=== PATIENT | male | born 1945 | race Caucasian/White ===

== ENCOUNTER 2023-12-05 08:04 | Inpatient (IN) | payer OTHER ==
[~2023-12-05] VITALS: Ht 172.7 cm; Wt 94.5 kg
[~2023-12-05 08:04] MED LIST: AMLODIPINE BESY10 MG PO; ASCRIPTIN325 MG PO; AUGMENTIN 875 M1 TA1 PO; COUMADIN5 M2 PO; CRESTOR10 MG PO; FLAGYL250 MG PO; PRINIVIL20 MG
[2023-12-05 08:28] VITALS: BP 123/56
[2023-12-05] MEDS ORDERED: SODIUM CHLORIDE 0.9% 1,000 ML IV ONE (08:50)
[2023-12-05 09:16] LABS: BASO # 0.1 10*3/uL (0.0-0.1); BASO % 0.4 % (0.0-1.0); HEMATOCRIT 44.5 % (42.0-52.0); LYMPH # 0.7 10*3/uL (1.3-4.4); LYMPH % 5.2 % (27.0-41.0); MEAN CELL VOLUME 98.2 fl (80.0-94.0); MEAN CORPUSCULAR HGB 33.6 pg (27.0-31.0); MEAN CORPUSCULAR HGB CONC 34.2 g/dl (33.0-37.0); MEAN PLATELET VOLUME 10.4 fl (9.6-12.3); MONO # 1.3 10*3/uL (0.1-1.0); NEUT # 12.2 10*3/uL (2.3-7.9); NEUT % 84.7 % (47.0-73.0); PLATELET COUNT AUTOMATED 153 10*3/uL (130-400); RED BLOOD COUNT 4.53 10*6/uL (4.50-5.90); RED CELL DISTRI WIDTH 13.2 % (0-14.5); WHITE BLOOD COUNT 14.4 10*3/uL (4.8-10.8)
[2023-12-05] MEDS ORDERED: SODIUM CHLORIDE 0.9% 1,000 ML IV SCH (09:25)
[2023-12-05 09:30] LABS: ACT PARTIAL THROMBO TIME 32.4 SECONDS (20.0-32.1)
[2023-12-05 09:38] LABS: ALKALINE PHOSPHATASE 71 U/L (46-116); BUN 16 mg/dl (9-23); CHLORIDE 104 mmol/L (98-107); LIPASE 25 U/L (12-53); SGPT/ALT 16 U/L (5-49); TOTAL PROTEIN 7.2 gm/dL (6.0-8.0)
[2023-12-05 09:41] LABS: POTASSIUM 3.5 mmol/L (3.4-5.1)
[2023-12-05] MEDS ORDERED: ASPIRIN 325 MG TAB PO ONE (09:50)
[2023-12-05 11:35] VITALS: BP 124/63
[2023-12-05] MEDS ORDERED: AZITHROMYCIN 250 ML IV ONE (12:05)
[2023-12-05] MEDS ORDERED: Ceftriaxone Sodium 1 GM/10 ML SYR IV ONE (12:05)
[2023-12-05] MEDS ORDERED: methylPREDNISolone sod succ 125 MG VIAL IV ONE (12:05)
[2023-12-05] MEDS ORDERED: MAGNESIUM SULFATE 100 ML IV ONE (12:15)
[2023-12-05] MEDS ORDERED: Ondansetron Hydrochloride 4 MG/2 ML VIAL IV PRN (12:50)
[2023-12-05] MEDS ORDERED: ACETAMINOPHEN 325 MG TAB PO PRN ×2 (12:50→12:55)
[2023-12-05] MEDS ORDERED: BISACODYL 5 MG TAB PO PRN (12:50)
[2023-12-05] MEDS ORDERED: BISACODYL 10 MG SUPP R PRN (12:50)
[2023-12-05] MEDS ORDERED: ACETAMINOPHEN 650 MG SUPP R PRN (12:50)
[2023-12-05] MEDS ORDERED: Acetaminophen/Hydrocodone 5 MG/325 MG TABLET PO PRN (12:50)
[2023-12-05] MEDS ORDERED: Magnesium Hydroxide 30 ML UDC PO PRN (12:50)
[2023-12-05] MEDS ORDERED: LIPITOR20 MG PO (13:24)
[2023-12-05] MEDS ORDERED: ASPIRIN ADULT L81 M1 PO (13:25)
[2023-12-05] MEDS ORDERED: Albuterol Sulf/Ipratropium 3 ML VIAL NEB PRN (14:10)
[2023-12-05 15:26] VITALS: BP 114/53
[2023-12-05 18:39] VITALS: BP 122/55
[2023-12-05 21:09] VITALS: BP 102/37
[2023-12-05] MEDS ORDERED: methylPREDNISolone sod succ 40 MG VIAL IV SCH (22:00)
[2023-12-06 06:22] VITALS: BP 117/45
[2023-12-06 07:01] LABS: HEMATOCRIT 44.8 % (42.0-52.0); MEAN CELL VOLUME 100.9 fl (80.0-94.0); MEAN CORPUSCULAR HGB 32.9 pg (27.0-31.0); MEAN CORPUSCULAR HGB CONC 32.6 g/dl (33.0-37.0); MEAN PLATELET VOLUME 10.5 fl (9.6-12.3); PLATELET COUNT AUTOMATED 158 10*3/uL (130-400); RED BLOOD COUNT 4.44 10*6/uL (4.50-5.90); RED CELL DISTRI WIDTH 13.5 % (0-14.5); WHITE BLOOD COUNT 13.1 10*3/uL (4.8-10.8)
[2023-12-06 07:04] LABS: MANUAL DIFF REFLEX YES
[2023-12-06 07:24] LABS: TOTAL CELLS COUNTED 100 #CELLS
[2023-12-06 07:25] LABS: BURR CELLS FEW; PLATELET SUFFICIENCY NORMAL (NORMAL); POLYCHROMASIA SLIGHT
[2023-12-06 07:28] LABS: BUN 23 mg/dl (9-23); CHLORIDE 108 mmol/L (98-107); CHOLESTEROL 90 mg/dL (<200); FREE T4 0.86 ng/dl (0.89-1.76); LDL CHOLESTEROL 43 mg/dL (9-159); POTASSIUM 4.1 mmol/L (3.4-5.1); TRIGLYCERIDES 77 mg/dl (<150)
[2023-12-06 08:00] VITALS: BP 141/62
[2023-12-06 09:08] LABS: VITAMIN D, 25-HYDROXY 42.3 ng/mL (30-100)
[2023-12-06] MEDS ORDERED: ASPIRIN, CHEWABLE 81 MG TAB PO SCH (10:00)
[2023-12-06] MEDS ORDERED: Albuterol Sulf/Ipratropium 3 ML VIAL NEB SCH (10:00)
[2023-12-06] MEDS ORDERED: Enoxaparin Sodium 40 MG/0.4 ML SYR SC SCH (10:00)
[2023-12-06] MEDS ORDERED: amLODIPine besylate 10 MG TAB PO SCH (10:00)
[2023-12-06] MEDS ORDERED: CYANOCOBALAMIN 500 MCG TAB PO SCH (10:00)
[2023-12-06] MEDS ORDERED: ATORVASTATIN CALCIUM 20 MG TAB PO SCH (10:00)
[2023-12-06] MEDS ORDERED: GUAIFENESIN 600 MG TAB ER PO SCH (10:00)
[2023-12-06] MEDS ORDERED: LISINOPRIL 20 MG TAB PO SCH (10:00)
[2023-12-06] MEDS ORDERED: CHLORTHALIDONE25 MG PO (11:03)
[2023-12-06 12:00] VITALS: BP 124/59
[2023-12-06] MEDS ORDERED: Ceftriaxone Sodium 1 GM in SYRINGE INFUSION 10 ML IV SCH (12:00)
[2023-12-06 12:24] LABS: BILIRUBIN Negative (Negative); BLOOD Negative (Negative); CLARITY Clear (Clear); COLOR Yellow (Yellow); GLUCOSE Negative (Negative); KETONE Negative (Negative); LEUKO ESTERASE Negative (Negative); NITRITE Negative (Negative); SPECIFIC GRAVITY 1.025 (1.001-1.030)
[2023-12-06 12:58] LABS: BACTERIA 1+
[2023-12-06] MEDS ORDERED: AZITHROMYCIN 250 ML IV SCH (13:00)
[2023-12-06 14:05] VITALS: BP 123/59; BP 123/69
[2023-12-06] MEDS ORDERED: Ceftriaxone Sodium 1 GM in SYRINGE INFUSION 10 ML IV ONE (15:00)
[2023-12-06 16:00] VITALS: BP 125/62
[2023-12-06 20:00] VITALS: BP 135/64
[2023-12-07] VITALS: BP 110/60
[2023-12-07 08:00] VITALS: BP 130/60
[2023-12-07] MEDS ORDERED: CHLORTHALIDONE 25 MG TAB PO SCH (10:00)
[2023-12-07 12:00] VITALS: BP 113/73
[2023-12-07] MEDS ORDERED: Ceftriaxone Sodium 2 GM in SYRINGE INFUSION 20 ML IV SCH (12:00)
[2023-12-07 16:00] VITALS: BP 130/60
[2023-12-07 20:00] VITALS: BP 101/41
[2023-12-08 00:58] VITALS: BP 110/45
[2023-12-08 08:00] VITALS: BP 143/74
[2023-12-08 12:00] VITALS: BP 123/59
[2023-12-08 16:00] VITALS: BP 157/78
[2023-12-08 20:00] VITALS: BP 134/65
[2023-12-08] MEDS ORDERED: Doxycycline Hyclate 100 MG CAP PO SCH (22:00)
[2023-12-09] VITALS: BP 144/63
[2023-12-09 08:00] VITALS: BP 146/87
[2023-12-09 12:00] VITALS: BP 140/70
[2023-12-09 16:00] VITALS: BP 101/58
[2023-12-09 20:00] VITALS: BP 117/55
[2023-12-10] VITALS: BP 121/51
[2023-12-10 08:00] VITALS: BP 161/76
[2023-12-10] MEDS ORDERED: VENT7GM INH (11:01)
[2023-12-10] MEDS ORDERED: PREDNISONE10 MG PO (11:01)
[2023-12-10] MEDS ORDERED: MUCUS RELIEF600 MG PO (11:01)
[2023-12-10] MEDS ORDERED: DOXYCYCLINE MO100 MG PO (11:01)
[2023-12-10] MEDS ORDERED: PHARMASSURE V500 MCG PO (11:01)
[2023-12-12] MEDS ORDERED: LEVOFLOXACIN750 M2 PO (16:10)
== END 2023-12-10 17:58 | disposition home or self-care (01) | DRG 871 ==
LOC: ED 08:04 → 4E 12:25 → EDHOLD 12:25 → 4E 12-06 12:08
PROVIDERS: Student in an Organized Health Care Education/Training Program; ADMIT Family Medicine; ATTEND Family Medicine
DX: A41.9 Sepsis, unspecified organism (principal); J15.69 Pneumonia due to other Gram-negative bacteria; J96.01 Acute respiratory failure with hypoxia; E87.1 Hypo-osmolality and hyponatremia; J44.1 Chronic obstructive pulmonary disease with (acute) exacerbation; J44.0 Chronic obstructive pulmonary disease with (acute) lower respiratory infection; R73.9 Hyperglycemia, unspecified; E66.9 Obesity, unspecified; E53.8 Deficiency of other specified B group vitamins; I25.10 Atherosclerotic heart disease of native coronary artery without angina pectoris; I10 Essential (primary) hypertension; E78.5 Hyperlipidemia, unspecified; Z20.822 Contact with and (suspected) exposure to COVID-19; E83.42 Hypomagnesemia; Z79.899 Other long term (current) drug therapy; Z79.01 Long term (current) use of anticoagulants; Z79.2 Long term (current) use of antibiotics; Z95.1 Presence of aortocoronary bypass graft; Z82.49 Family history of ischemic heart disease and other diseases of the circulatory system; Z87.891 Personal history of nicotine dependence; Z68.31 Body mass index [BMI] 31.0-31.9, adult